=== PATIENT | female | born 1960 | race Caucasian/White ===

== ENCOUNTER 2019-06-08 09:32 | Outpatient (CLI) | payer OTHER ==
[2019-06-08 10:02] LABS: BASOPHILS % 1.4 % (0.0-1.5); NEUTROPHILS # 6.3 # k/uL (1.4-7.7)
[2019-06-08 10:50] LABS: HDL 62 mg/dL (>40); eGFR (Non-African) > 60
== END 2019-06-08 09:34 ==
LOC: LAB 09:32
PROVIDERS: ATTEND Internal Medicine Cardiovascular Disease
DX: I10 Essential (primary) hypertension (principal); I25.119 Atherosclerotic heart disease of native coronary artery with unspecified angina pectoris
CPT/HCPCS: 36415; 80053; 80061; 84443; 85025